=== PATIENT | female | born 1970 | race Asian ===

== ENCOUNTER 2016-06-25 07:44 | Outpatient (CLI) | payer OTHER ==
[~2016-06-25 07:44] MED LIST: ALBU90AE13 INH; AMOX500T5 PO; CEFTIN250 MG OR; CHLORTHALID25 MG PO; DICL1GEL2 TOP; DULO30CA PO; ECOTRIN REGULA325 MG PO; FEXOFENADINE H180 MG PO; FLUT0.05 NAS; GABA300C2 PO; HYOSCYAMINE0.375 MG PO; INSU100P SC; LANTUS100 MG/ML SC; LIPITOR80 MG PO; LISI20TA11 PO; LORA10TA3 PO; MELOXICAM7.5 MG OR; OMEPRAZOLE20 M1 OR; TIZA4TAB5 PO; Z-PAK PO
[2016-06-25 09:44] LABS: PLATELET COUNT 280 K/uL (152-353)
== END 2016-06-25 19:05 | disposition home or self-care (01) ==
LOC: LABW 07:44
PROVIDERS: Nurse Practitioner Family
DX: Z79.899 Other long term (current) drug therapy (principal); Z51.81 Encounter for therapeutic drug level monitoring
CPT/HCPCS: 80076; 82465; 84478; 84702; 85027

== ENCOUNTER 2016-07-30 10:39 | Outpatient (CLI) | payer OTHER ==
[2016-07-30 11:10] LABS: PLATELET COUNT 290 K/uL (152-353)
[2016-07-30 11:43] LABS: POTASSIUM 4.3 mmol/L (3.6-5.2); SODIUM 137 mmol/L (136-145)
== END 2016-07-30 20:17 | disposition home or self-care (01) ==
LOC: LABW 10:39
PROVIDERS: Internal Medicine
DX: E11.9 Type 2 diabetes mellitus without complications (principal)
CPT/HCPCS: 36415; 80053; 80061; 81000; 82043; 82570; 83036; 84439; 84443; 85027

== ENCOUNTER 2016-11-18 23:51 | Observation (INO) | payer OTHER ==
[~2016-11-18] VITALS: Ht 165.1 cm; Wt 79.1 kg
[2016-11-19] VITALS (7 sets, daily range): BP systolic 102–157; BP diastolic 65–88; TEMP 98–99; Ht 165.1 cm; Wt 79.1 kg
[2016-11-19] MEDS ORDERED: DULO60CA2 OR (00:21)
[2016-11-19] MEDS ORDERED: CLOP75TA2 PO (00:22)
[2016-11-19] MEDS ORDERED: CETI10TA PO (00:23)
[2016-11-19 00:52] LABS: PLATELET COUNT 394 K/uL (152-353)
[2016-11-19 00:57] LABS: POTASSIUM 3.7 mmol/L (3.6-5.2)
[2016-11-20] VITALS: BP 122/79; TEMP 98.3
[2016-11-20 04:00] VITALS: BP 130/81; TEMP 98.4
[2016-11-20 05:22] LABS: PLATELET COUNT 330 K/uL (152-353)
[2016-11-20 05:46] LABS: POTASSIUM 4.1 mmol/L (3.6-5.2); SODIUM 140 mmol/L (136-145)
[2016-11-20 08:00] VITALS: BP 140/81; TEMP 98.3
[2016-11-20 12:00] VITALS: BP 146/94; TEMP 98.3
[2016-11-20 16:00] VITALS: BP 151/87; TEMP 98.4
== END 2016-11-20 17:30 | disposition home or self-care (01) ==
LOC: ED 23:51 → MED/SURG 11-19 01:24
PROVIDERS: Internal Medicine; ADMIT Specialist
DX: G45.8 Other transient cerebral ischemic attacks and related syndromes (principal); R42 Dizziness and giddiness; R70.0 Elevated erythrocyte sedimentation rate
CPT/HCPCS: 36415; 80053; 82947; 82948; 83735; 84443; 85027; 85379; 85610; 85651; 86039; 93005; 96365; 96372; 99220; 99285; G0378; J1815

== ENCOUNTER → 2016-12-08 10:34 | Outpatient (CLI) | payer OTHER ==
[~2016-12-08 10:34] MED LIST changes: +CETI10TA PO; +CLOP75TA2 PO; +DULO60CA2 OR
== END ==
LOC: AMB 10:34
DX: R56.9 Unspecified convulsions (principal); R47.01 Aphasia
CPT/HCPCS: A0425; A0427

== ENCOUNTER 2016-12-08 10:51 | Emergency (ER) | payer OTHER ==
[~2016-12-08] VITALS: Ht 165.1 cm; Wt 79.4 kg
[2016-12-08 11:12] LABS: PLATELET COUNT 406 K/uL (152-353)
[2016-12-08 11:23] LABS: POTASSIUM 3.9 mmol/L (3.6-5.2)
[2016-12-08 13:49] VITALS: BP 129/83; TEMP 97.2
== END 2016-12-08 14:03 | disposition short-term general hospital (02) ==
LOC: ED 10:51
DX: S06.4X0A Epidural hemorrhage without loss of consciousness, initial encounter (principal); E11.65 Type 2 diabetes mellitus with hyperglycemia; R56.9 Unspecified convulsions; R00.0 Tachycardia, unspecified; I45.81 Long QT syndrome
CPT/HCPCS: 80053; 81000; 83036; 85027; 93005; 96360; 96361; 96365; 99285; J1815; J2060

== ENCOUNTER 2016-12-31 21:33 | Emergency (ER) | payer BC ==
[~2016-12-31] VITALS: Ht 165.1 cm; Wt 79.4 kg
[2016-12-31 22:48] LABS: PLATELET COUNT 377 K/uL (152-353)
[2016-12-31 22:54] LABS: POTASSIUM 3.4 mmol/L (3.6-5.2)
[2017-01-01 00:56] VITALS: BP 124/81; TEMP 99
[2017-01-01] MEDS ORDERED: UNITH DIRECT50 MCG PO (14:23)
== END 2017-01-01 01:04 | disposition home or self-care (01) ==
LOC: ED 21:33
DX: J02.0 Streptococcal pharyngitis (principal); I00 Rheumatic fever without heart involvement; E11.9 Type 2 diabetes mellitus without complications; R19.7 Diarrhea, unspecified
CPT/HCPCS: 36415; 74022; 80048; 81000; 83605; 85027; 86318; 87040; 87804; 87880; 96361; 96365; 96376; 99284; J0696; J1885

== ENCOUNTER 2017-01-01 11:13 | Inpatient (IN) | payer BC ==
[~2017-01-01] VITALS: Ht 165.1 cm; Wt 88.7 kg
[2017-01-01 14:02] LABS: PLATELET COUNT 381 K/uL (152-353)
[2017-01-01] MEDS ORDERED: UNITH DIRECT50 MCG PO (14:23)
[2017-01-01 15:50] VITALS: BP 140/79; TEMP 101.1; Ht 165.1 cm; Wt 88.7 kg
[2017-01-01 16:00] VITALS: BP 129/74; TEMP 99.8
[2017-01-01 20:00] VITALS: BP 137/70; TEMP 99
[2017-01-02] VITALS: BP 129/79; TEMP 99.6
[2017-01-02 04:00] VITALS: BP 133/79; TEMP 98.9
[2017-01-02 06:25] LABS: PLATELET COUNT 429 K/uL (152-353)
[2017-01-02 06:34] LABS: POTASSIUM 3.4 mmol/L (3.6-5.2)
[2017-01-02 08:00] VITALS: BP 151/84; TEMP 99.5
[2017-01-02 12:00] VITALS: BP 130/64; TEMP 99.4
[2017-01-02 16:00] VITALS: BP 162/85; TEMP 100.9
[2017-01-02 20:23] VITALS: BP 122/71; TEMP 99
[2017-01-03] VITALS: BP 146/77; TEMP 98.5
[2017-01-03 04:00] VITALS: BP 165/82; TEMP 98.6
[2017-01-03 08:00] VITALS: BP 150/85; TEMP 99
[2017-01-03 09:27] LABS: PLATELET COUNT 474 K/uL (152-353)
[2017-01-03 09:40] LABS: POTASSIUM 3.2 mmol/L (3.6-5.2)
[2017-01-03 12:00] VITALS: BP 141/80; TEMP 99.1
[2017-01-03 16:00] VITALS: BP 164/88; TEMP 100.2
[2017-01-03 20:00] VITALS: BP 163/97; TEMP 99
[2017-01-04] VITALS: BP 142/81; TEMP 99.7
[2017-01-04 04:00] VITALS: BP 149/80; TEMP 99.3
[2017-01-04 08:00] VITALS: BP 145/78; TEMP 98.2
[2017-01-04 12:00] VITALS: BP 139/72; TEMP 98.7
[2017-01-04 15:01] LABS: PLATELET COUNT 573 K/uL (152-353)
[2017-01-04 15:18] LABS: POTASSIUM 3.4 mmol/L (3.6-5.2)
[2017-01-04 16:00] VITALS: BP 155/87; TEMP 99.3
[2017-01-04 20:00] VITALS: BP 145/78; TEMP 98.2
[2017-01-05] VITALS: BP 149/89; TEMP 99.8
[2017-01-05 04:00] VITALS: BP 157/94; TEMP 98.3
[2017-01-05 06:27] LABS: POTASSIUM 3.2 mmol/L (3.6-5.2)
[2017-01-05 06:52] LABS: PLATELET COUNT 534 K/uL (152-353)
[2017-01-05 08:00] VITALS: BP 146/80; TEMP 98.7
[2017-01-05 12:00] VITALS: BP 150/76; TEMP 98.6
[2017-01-05 16:00] VITALS: BP 141/93; TEMP 99.8
[2017-01-05 20:00] VITALS: BP 167/91; TEMP 99.6
[2017-01-06] VITALS: BP 153/88; TEMP 98.1
[2017-01-06 04:00] VITALS: BP 152/86; TEMP 98.6
[2017-01-06 06:45] LABS: PLATELET COUNT 662 K/uL (152-353)
[2017-01-06 08:00] VITALS: BP 155/79; TEMP 98
[2017-01-06 08:00] LABS: POTASSIUM 3.3 mmol/L (3.6-5.2)
== END 2017-01-06 10:37 | disposition home or self-care (01) | DRG 641 ==
LOC: MED/SURG 11:13
PROVIDERS: Internal Medicine; ADMIT Family Medicine
PROC: 30243N1 Transfusion of Nonautologous Red Blood Cells into Central Vein, Percutaneous Approach (ICD-10-PCS; principal; 2017-01-03)
PROC: 30243N1 Transfusion of Nonautologous Red Blood Cells into Central Vein, Percutaneous Approach (ICD-10-PCS; 2017-01-04)
DX: E86.0 Dehydration (principal); G40.802 Other epilepsy, not intractable, without status epilepticus; E11.69 Type 2 diabetes mellitus with other specified complication; J02.0 Streptococcal pharyngitis; E87.6 Hypokalemia; D64.89 Other specified anemias; D72.828 Other elevated white blood cell count
CPT/HCPCS: 36415; 36430; 36591; 74022; 80048; 80053; 81000; 82150; 82272; 82948; 83605; 83690; 83735; 85027; 85651; 86060; 86140; 86318; 86430; 86850; 86900; 86901; 86922; 87015; 87040; 87045; 87205; 87324; 87328; 87329; 87449; 87507; 87804; 87880; 87899; 94760; 96361; 96365; 96372; 96375; 96376; 99284; J0696; J1642; J1815; J1885; J1956; J2405; J2550; J3490; P9016; P9047

== ENCOUNTER 2017-01-12 16:19 | Outpatient (CLI) | payer BC ==
[~2017-01-12 16:19] MED LIST changes: +UNITH DIRECT50 MCG PO
[2017-01-12 17:22] LABS: PLATELET COUNT 1077 K/uL (152-353)
== END 2017-01-12 19:15 | disposition home or self-care (01) ==
LOC: LABW 16:19
PROVIDERS: Internal Medicine
DX: D69.6 Thrombocytopenia, unspecified (principal)
CPT/HCPCS: 36415; 85027

== ENCOUNTER 2017-01-14 07:55 | Outpatient (CLI) | payer BC | END 2017-01-14 10:00 | disposition home or self-care (01) | LOC: NM 07:55 | DX: K82.8 Other specified diseases of gallbladder (principal) | CPT/HCPCS: A9537 ==

== ENCOUNTER 2017-04-06 16:50 | Outpatient (CLI) | payer BC | END 2017-04-06 18:04 | disposition home or self-care (01) | LOC: US 16:50 | DX: M79.89 Other specified soft tissue disorders (principal) ==

== ENCOUNTER 2017-04-17 22:11 | Inpatient (IN) | payer BC ==
[~2017-04-17] VITALS: Ht 165.1 cm; Wt 79.0 kg
[2017-04-17 22:40] VITALS: BP 148/87; TEMP 99.1
[2017-04-18 02:08] LABS: PLATELET COUNT 633 K/uL (152-353)
[2017-04-18 02:17] LABS: POTASSIUM 3.7 mmol/L (3.6-5.2)
[2017-04-18] MEDS ORDERED: ASPIR-8181 MG PO (04:02)
[2017-04-18] MEDS ORDERED: METO50TA27 PO (04:03)
[2017-04-18] MEDS ORDERED: TOUJEO SOL300 UNIT/M SC (04:04)
[2017-04-18 05:19] VITALS: BP 132/69; TEMP 98.4; Ht 165.1 cm; Wt 79.0 kg
--- NOTE | 2017-04-18 07:06 | NUR ---
04/18/17 0452 PATIENT BROUGHT TO FLOOR FROM ER DEPARTMENT VIA WHEELCHAIR. ASSISTED TO THE BED. 22G LAC.
[2017-04-18 08:00] VITALS: BP 138/73; TEMP 98.6
[2017-04-18 12:00] VITALS: BP 143/71; TEMP 98.9
[2017-04-18 16:00] VITALS: BP 158/83; TEMP 98.9
--- NOTE | 2017-04-18 17:05 | NUR ---
0800 DR. SADIA FRANKLIN TO VISIT. NEW ORDERS NOTED.
[2017-04-18 20:00] VITALS: BP 151/98; TEMP 99.1
--- NOTE | 2017-04-18 20:50 | NUR ---
0815 0.75 INCH BY 0.75 INCH STAGE STAGE 2-3 PRESSURE ULCER NOTED TO THE DORSAL SURFACE OF RIGHT FOOT. CLEANED WITH NORMAL SALINE. BANDAGE APPLIED.
--- NOTE | 2017-04-18 20:53 | NUR ---
1718 REPORT OF DOPPLER ON RIGHT LOWER LEG NOTED ON CHART.
--- NOTE | 2017-04-18 20:55 | NUR ---
1230 WOUND CULTURE SENT TO LAB. OBTAINED FROM RIGHT FOOT, PRESSURE ULCER.
[2017-04-19] VITALS: BP 148/76; TEMP 98.3
[2017-04-19 04:00] VITALS: BP 159/74; TEMP 98.2
--- NOTE | 2017-04-19 04:52 | NUR ---
04/19/17 0130 PATIENT HAS STAGE 3 DECUBITIS /CELLULITIS TO RT GREAT TOE. CLEANSED AREA WITH BETADINE, COVERED WITH TELFA PAD, WRAPPED WITH CLING GAUZE. NO DRAINAGE OR ODOR NOTED.
[2017-04-19 05:29] LABS: PLATELET COUNT 637 K/uL (152-353)
[2017-04-19 05:53] LABS: POTASSIUM 4.1 mmol/L (3.6-5.2)
[2017-04-19 07:51] VITALS: BP 134/84; TEMP 98.8
[2017-04-19 12:00] VITALS: BP 158/82; TEMP 98.9
--- NOTE | 2017-04-19 12:26 | NUR ---
NOTIFIED DR. DIETRICH BLOOD SUGAR 427. FOLLOW SSI.
[2017-04-19 15:56] VITALS: BP 120/62; TEMP 99.4
[2017-04-19 20:10] VITALS: BP 133/70; TEMP 100.1
[2017-04-20] VITALS: BP 132/71; TEMP 98.7
[2017-04-20 04:00] VITALS: BP 144/82; TEMP 98.3
[2017-04-20 06:35] LABS: PLATELET COUNT 608 K/uL (152-353)
--- NOTE | 2017-04-20 07:28 | NUR ---
DR. DIETRICH HERE TO VISIT WITH NEW ORDERS. DRESSING CHANGED. WOUND HAS INCREASED DRAINAGE WITH FOUL ODOR.
[2017-04-20 08:00] VITALS: BP 145/70; TEMP 98.6
[2017-04-20 12:21] VITALS: BP 130/70; TEMP 98
[2017-04-20 16:02] VITALS: BP 143/86; TEMP 99.4
[2017-04-20 20:00] VITALS: BP 147/71; TEMP 99.6
[2017-04-21] VITALS: BP 154/80; TEMP 99
[2017-04-21 04:00] VITALS: BP 156/86; TEMP 99
[2017-04-21 06:10] LABS: PLATELET COUNT 613 K/uL (152-353)
[2017-04-21 06:21] LABS: POTASSIUM 4.5 mmol/L (3.6-5.2); SODIUM 132 mmol/L (136-145)
[2017-04-21 08:00] VITALS: BP 156/81; TEMP 98.3
[2017-04-21 12:00] VITALS: BP 129/79; TEMP 98.4
[2017-04-21 16:00] VITALS: BP 125/76; TEMP 98.5
[2017-04-21 20:00] VITALS: BP 150/79; TEMP 98.9
[2017-04-22] VITALS: BP 140/78; TEMP 98.3
[2017-04-22 04:00] VITALS: BP 120/66; TEMP 97.8
[2017-04-22 07:01] LABS: PLATELET COUNT 702 K/uL (152-353)
[2017-04-22 07:11] LABS: POTASSIUM 4.2 mmol/L (3.6-5.2)
[2017-04-22 08:00] VITALS: BP 139/85; TEMP 98
--- NOTE | 2017-04-22 08:35 | NUR ---
LAB REPORTED BS 645, FSBS 65. ASKED LAB TO REDRAW PT TO RECHECK BS.
--- NOTE | 2017-04-22 08:48 | NUR ---
BLOOD SUGAR 168.
--- NOTE | 2017-04-22 11:32 | NUR ---
WOUND CARE DONE. PT KEY WELL.
[2017-04-22 12:00] VITALS: BP 123/75; TEMP 98
[2017-04-22 16:00] VITALS: BP 132/85; TEMP 98.3
[2017-04-22 20:00] VITALS: BP 140/78; TEMP 98.9
[2017-04-23] VITALS: BP 146/81; TEMP 98.7
[2017-04-23 04:00] VITALS: BP 121/68; TEMP 98.9
--- NOTE | 2017-04-23 05:16 | NUR ---
04/23/2016 @ 0445 PT. STATES "I THINK MY BLOOD SUGAR IS LOW". CHECKED FINGERSTICK BLOOD SUGAR AND IT WAS 46. PT. GIVEN 2 ORANGE JUICES TO DRINK. PT. STATES THAT USUALLY WILL BRING BS UP. PT. ADVISED TO CALL NURSE IF SHE DOESNT THINK ITS COMING UP. AND WILL RECHECK FSBS IN ABOUT 45 MINUTES. NAD NOTED. WILL CONTINUE TO MONITOR.
[2017-04-23 06:36] LABS: POTASSIUM 4.1 mmol/L (3.6-5.2)
--- NOTE | 2017-04-23 06:41 | NUR ---
04/23/2017 AT 0640 BLOOD SUGAR IS NOW 102 ON MORNING LABS AND PT. STATES SHE FEELS BETTER NOW. WILL CONTINUE TO MONITOR.
[2017-04-23 06:58] LABS: PLATELET COUNT 602 K/uL (152-353)
[2017-04-23 08:00] VITALS: BP 150/86; TEMP 99
--- NOTE | 2017-04-23 10:46 | NUR ---
1045 [facility] NOTIFIED FOR OUT PT REFERALL PER MD ORDERS. ALL INFORM FAXED TO [facility] INSTRUCTED. THEY WILL CALL PT WITH APPT DATE AND TIME. CENTRAL SCHEDULING WILL CALL PT WITH APPT DATE AND TIME FOR BONE SCAN PT INFOMRED AND AWARE.
== END 2017-04-23 12:43 | disposition home or self-care (01) | DRG 603 ==
LOC: ED 22:11 → MED/SURG 04-18 03:37
PROVIDERS: Internal Medicine; ADMIT Specialist
PROC: 2W2SX4Z Dressing of Right Foot using Bandage (ICD-10-PCS; principal; 2017-04-18)
PROC: 2W0SX4Z Change Bandage on Right Foot (ICD-10-PCS; 2017-04-19)
PROC: 2W0SX4Z Change Bandage on Right Foot (ICD-10-PCS; 2017-04-20)
PROC: 2W0SX4Z Change Bandage on Right Foot (ICD-10-PCS; 2017-04-21)
PROC: 2W0SX4Z Change Bandage on Right Foot (ICD-10-PCS; 2017-04-22)
DX: L03.115 Cellulitis of right lower limb (principal); M31.8 Other specified necrotizing vasculopathies; B96.89 Other specified bacterial agents as the cause of diseases classified elsewhere; M25.571 Pain in right ankle and joints of right foot; M79.89 Other specified soft tissue disorders; E11.69 Type 2 diabetes mellitus with other specified complication; Z79.4 Long term (current) use of insulin; J01.80 Other acute sinusitis
CPT/HCPCS: 36415; 80048; 80053; 80202; 81000; 82947; 82948; 85027; 85651; 86140; 87070; 87077; 87185; 87186; 87205; 96365; 96367; 96372; 96375; 99284; J1650; J1815

== ENCOUNTER 2017-04-27 09:08 | Outpatient (CLI) | payer BC ==
[~2017-04-27 09:08] MED LIST changes: +ASPIR-8181 MG PO; +METO50TA27 PO; +TOUJEO SOL300 UNIT/M SC
== END 2017-04-27 19:05 | disposition home or self-care (01) ==
LOC: NM 09:08
DX: M86.8X8 Other osteomyelitis, other site (principal)
CPT/HCPCS: A9561

== ENCOUNTER 2017-05-08 07:30 | Outpatient (CLI) | payer BC ==
[2017-05-08 08:03] LABS: PLATELET COUNT 423 K/uL (152-353)
[2017-05-08 09:23] LABS: POTASSIUM 4.1 mmol/L (3.6-5.2)
== END 2017-05-09 00:40 | disposition home or self-care (01) ==
LOC: LABW 07:30
PROVIDERS: Internal Medicine Hematology & Oncology
DX: D72.829 Elevated white blood cell count, unspecified (principal); R79.89 Other specified abnormal findings of blood chemistry
CPT/HCPCS: 36415; 80053; 82728; 83036; 85027; 85651

== ENCOUNTER 2018-04-28 08:38 | Outpatient (CLI) | payer BC | END 2018-04-28 08:47 | disposition short-term general hospital (02) | LOC: AMB 08:38 | DX: R41.82 Altered mental status, unspecified (principal) | CPT/HCPCS: A0425; A0427 ==

== ENCOUNTER 2018-04-28 08:47 | Emergency (ER) | payer BC ==
[~2018-04-28] VITALS: Ht 167.6 cm; Wt 68.0 kg
[2018-04-28 09:10] LABS: PLATELET COUNT 376 K/uL (152-353)
[2018-04-28 10:11] VITALS: BP 86/47; TEMP 97.5
== END 2018-04-28 14:00 | disposition short-term general hospital (02) ==
LOC: ED 08:47
PROC: 0T9B70Z Drainage of Bladder with Drainage Device, Via Natural or Artificial Opening (ICD-10-PCS; principal; 2018-04-28)
PROC: 0BH17EZ Insertion of Endotracheal Airway into Trachea, Via Natural or Artificial Opening (ICD-10-PCS; 2018-04-28)
PROC: 5A1935Z Respiratory Ventilation, Less than 24 Consecutive Hours (ICD-10-PCS; 2018-04-28)
PROC: 05H533Z Insertion of Infusion Device into Right Subclavian Vein, Percutaneous Approach (ICD-10-PCS; 2018-04-28)
DX: E11.10 Type 2 diabetes mellitus with ketoacidosis without coma (principal); R65.21 Severe sepsis with septic shock
CPT/HCPCS: 36415; 36558; 36591; 36600; 51702; 80053; 80307; 81000; 81002; 82805; 82947; 82962; 83605; 85007; 85027; 87040; 93005; 94002; 94003; 96365; 96366; 96368; 96375; 99285; J0330; J0696; J1265; J1815; J2250; J3490

== ENCOUNTER 2018-08-19 21:47 | Emergency (ER) | payer OTHER ==
[~2018-08-19] VITALS: Ht 167.6 cm; Wt 68.0 kg
[2018-08-19 22:00] VITALS: TEMP 98.5
[2018-08-20 00:56] LABS: PLATELET COUNT 333 K/uL (152-353)
[2018-08-20 01:11] LABS: POTASSIUM 4.3 mmol/L (3.6-5.2); SODIUM 132 mmol/L (136-145)
[2018-08-20 02:47] VITALS: BP 95/64
== END 2018-08-20 02:48 | disposition home or self-care (01) ==
LOC: ED 21:47
PROVIDERS: Emergency Medicine
DX: G43.909 Migraine, unspecified, not intractable, without status migrainosus (principal)
CPT/HCPCS: 80053; 82550; 82553; 84484; 85027; 93005; 96365; 96375; 99284; J2175; J2405

== ENCOUNTER 2018-09-16 15:40 | Outpatient (CLI) | payer OTHER | END 2018-09-16 15:42 | disposition short-term general hospital (02) | LOC: AMB 15:40 | DX: R07.89 Other chest pain (principal); V43.62XA Car passenger injured in collision with other type car in traffic accident, initial encounter; W22.19XA Striking against or struck by other automobile airbag, initial encounter; Y92.413 State road as the place of occurrence of the external cause | CPT/HCPCS: A0425; A0429 ==

== ENCOUNTER 2018-09-16 15:47 | Emergency (ER) | payer OTHER ==
[~2018-09-16] VITALS: Ht 167.6 cm; Wt 68.0 kg
[2018-09-16 17:52] VITALS: BP 160/90; TEMP 98.5
== END 2018-09-16 17:52 | disposition home or self-care (01) ==
LOC: ED 15:47
DX: R07.89 Other chest pain (principal); R00.0 Tachycardia, unspecified; V49.40XA Driver injured in collision with unspecified motor vehicles in traffic accident, initial encounter
CPT/HCPCS: 93005; 96372; 99283; J1885

== ENCOUNTER 2018-12-16 17:53 | Inpatient (IN) | payer OTHER ==
[~2018-12-16] VITALS: Ht 165.1 cm; Wt 74.5 kg
[2018-12-16 18:00] VITALS: BP 155/88; TEMP 97.9
[2018-12-16 18:52] LABS: PLATELET COUNT 285 K/uL (152-353)
[2018-12-16 18:54] LABS: POTASSIUM 4.1 mmol/L (3.6-5.2)
[2018-12-16 19:00] VITALS: BP 162/90
[2018-12-16 19:05] LABS: PARTIAL THROMBOPLASTIN TIME 21.7 SECONDS (24.5-33.6)
[2018-12-16 20:00] VITALS: BP 156/92
[2018-12-16 21:00] VITALS: BP 142/88
[2018-12-16 22:00] VITALS: BP 137/82
[2018-12-16 23:14] VITALS: BP 143/83; TEMP 98.7; Ht 165.1 cm; Wt 74.5 kg
[2018-12-17] MEDS ORDERED: FERROUS SULF325 MG PO (01:01)
[2018-12-17] MEDS ORDERED: PANTOPRAZOLE 40MG TA PO (01:02)
[2018-12-17] MEDS ORDERED: LIPITOR80 MG PO (01:03)
[2018-12-17 04:00] VITALS: BP 106/66; TEMP 98.3
[2018-12-17 08:00] VITALS: BP 115/69; TEMP 98
[2018-12-17 12:00] VITALS: BP 125/67; TEMP 97.6
[2018-12-17 16:00] VITALS: BP 109/60; TEMP 98.6
[2018-12-17 20:00] VITALS: BP 129/75; TEMP 98.2
[2018-12-17 23:55] VITALS: BP 167/89; TEMP 98.2
[2018-12-18 04:00] VITALS: BP 112/63; TEMP 98.5
[2018-12-18 08:00] VITALS: BP 141/80; TEMP 97.7
[2018-12-18 12:00] VITALS: BP 142/85; TEMP 97.9
[2018-12-18 16:00] VITALS: BP 116/72; TEMP 97.8
[2018-12-18 20:00] VITALS: BP 132/78; TEMP 98.9
[2018-12-19] VITALS: BP 111/64; TEMP 99.2
[2018-12-19 03:58] VITALS: BP 144/84; TEMP 98.5
[2018-12-19 05:44] LABS: PLATELET COUNT 290 K/uL (152-353)
[2018-12-19 06:26] LABS: POTASSIUM 4.1 mmol/L (3.6-5.2)
[2018-12-19 08:21] VITALS: BP 162/94; TEMP 97.8
[2018-12-19 12:09] VITALS: BP 146/79; TEMP 98.3
== END 2018-12-19 13:00 | disposition home or self-care (01) | DRG 66 ==
LOC: ED 17:53 → MED/SURG 21:45
PROVIDERS: Family Medicine; ADMIT Family Medicine
DX: I63.89 Other cerebral infarction (principal); I10 Essential (primary) hypertension; K21.9 Gastro-esophageal reflux disease without esophagitis; E11.65 Type 2 diabetes mellitus with hyperglycemia; Z86.73 Personal history of transient ischemic attack (TIA), and cerebral infarction without residual deficits; E11.42 Type 2 diabetes mellitus with diabetic polyneuropathy; E03.8 Other specified hypothyroidism
CPT/HCPCS: 36415; 36416; 80053; 81000; 82272; 82550; 82553; 82947; 82948; 82962; 83036; 84439; 84443; 84484; 85027; 85610; 85730; 93005; 94760; 96366; 96372; 96374; 99284; J1650; J1815; J3490

== ENCOUNTER 2019-06-22 06:56 | Emergency (ER) | payer OTHER ==
[~2019-06-22] VITALS: Ht 165.1 cm; Wt 77.1 kg
[2019-06-22] VITALS (10 sets, daily range): BP systolic 87–119; BP diastolic 46–64; TEMP 97.5–102.2
[~2019-06-22 06:56] MED LIST changes: +FERROUS SULF325 MG PO; +PANTOPRAZOLE 40MG TA PO
[2019-06-22 07:29] LABS: PLATELET COUNT 587 K/uL (152-353)
[2019-06-22 07:33] LABS: POTASSIUM 5.6 mmol/L (3.6-5.2)
== END 2019-06-22 16:59 | disposition short-term general hospital (02) ==
LOC: ED 06:56 → ICU 15:05 → ED 16:59
PROVIDERS: Emergency Medicine
DX: L03.116 Cellulitis of left lower limb (principal); R65.10 Systemic inflammatory response syndrome (SIRS) of non-infectious origin without acute organ dysfunction; A41.9 Sepsis, unspecified organism; E11.69 Type 2 diabetes mellitus with other specified complication; S91.332A Puncture wound without foreign body, left foot, initial encounter; W25.XXXA Contact with sharp glass, initial encounter
CPT/HCPCS: 80053; 81002; 82150; 83690; 85027; 96360; 96365; 96366; 96375; 99284; J1885; J2175; J2405; J2543; J3370; Q9963